=== PATIENT | male | born 2005 | race Two or more races ===

== ENCOUNTER 2024-08-08 22:06 | Emergency (ER) | payer OTHER ==
[2024-08-08 22:11] VITALS: BP 155/85; PULSE 86; RESP 17; TEMP 98.1; BMI 33.9
[2024-08-08] MEDS ORDERED: SULFAMETHOXAZOLE/TRIMETHOPRIM 800MG/160MG D.S. TABLET ONE (22:31)
[2024-08-08] MEDS ORDERED: IBUPROFEN 600 MG TABLET (FP) PO ONE (22:31)
[2024-08-08] MEDS: IBUPROFEN 600 MG TABLET (FP) PO ONE (22:33)
[2024-08-08] MEDS: SULFAMETHOXAZOLE/TRIMETHOPRIM 800MG/160MG D.S. TABLET PO ONE (22:33)
[2024-08-08] MEDS ORDERED: BACITRACIN ZINC 15 GM TUBE TOPICAL OINTMENT ONE (22:39)
== END 2024-08-08 22:41 | disposition home or self-care (01) ==
LOC: JERFT 22:06
DX: L03.012 Cellulitis of left finger (principal)
CPT/HCPCS: 99283-25